=== PATIENT | female | born 1985 | race Caucasian/White ===

== ENCOUNTER 2018-08-04 15:00 | Emergency (ER) | payer MEDICAID, OTHER ==
[2018-08-04 15:58] LABS: BASOPHIL % 0.5 % (0.0-0.4); Basophil (Absolute #) 0.04 (0-0.4); Eosinophil (Absolute #) 0.08 (0-0.5); Granulocyte Absolute (ANC) 6.44 (1.4-6.9); Hematocrit 44.7 % (35-47); Hemoglobin 15.2 gm/dl (12.0-16.0); Lymphocyte (Absolute #) 0.72 (1.0-4.6); Mean Cell Volume 93.5 fl (78-100); Mean Corpuscular Hemoglobin 31.8 pg (26-32); Mean Platelet Volume 11.4 fl (6-9.5); Monocyte (Absolute #) 0.68 (0.0-1.3); Monocytes % 8.5 % (0.0-12.0); Platelet Count 263 K/mm3 (150-450); Red Blood Count 4.78 M/mm3 (4.1-5.4); Red Cell Distribution Width 12.5 % (11.5-14.0)
[2018-08-04 16:06] LABS: ALBUMIN 5.5 g/dL (3.5-5.0); ALKALINE PHOSPHATASE 77 U/L (38-126); ANION GAP 18.2 MEQ/L (5-15); BLOOD UREA NITROGEN 14 mg/dL (7-17); CHLORIDE 100 mmol/L (98-107); Calcium 10.3 mg/dL (8.4-10.2); Carbon Dioxide 28 mmol/L (22-30); Creatinine 1 0.53 mg/dL (0.52-1.04); Glucose 106 mg/dL (74-106); Potassium 4.2 mmol/L (3.5-5.1); SGOT/AST 25 U/L (14-36); SGPT/ALT 17 U/L (0-35); SODIUM 141 mmol/L (137-145); Total Protein 9.4 g/dL (6.3-8.2)
[2018-08-04] MEDS ORDERED: Sodium Chloride 0.9% 1000 ML 1,000 ML IV STA (16:15)
[2018-08-04] MEDS ORDERED: Sodium Chloride 0.9% 1000 ML 1,000 ML ONE (16:20)
--- NOTE | 2018-08-04 18:54 | XRAY ---
Indication: Lower abdominal pain and constipation. Comparison: None KUB nonacute and nonobstructed with mild fecal debris in the sigmoid colon and rectum. Remaining solid organs, osseous structures, and lung bases unremarkable.
[2018-08-04 19:16] VITALS: BP 146/92; PULSE 84; O2SAT 100
--- NOTE | 2018-08-04 19:41 | ERPHSYRPT ---
- History of Present Illness Historian: patient Exam Limitations: no limitations Patient Subjective Stated Complaint: constipated for four days. this am took three laxatives and still has not had a bm. also had some bleeding from rectum. Triage Nursing Assessment: ambulated to room per self holding lower abd. abd soft, hypoactive bowel sounds. Physician History: Pt is a 33 y/o female with a h/o constipation of 4 days. She took multiple constipation meds, and developed abdominal pain, and nausea. Pt denies F/C/S. No vomiting. She does have some blood with straining. No chest pain or palpitations. No SOB or cough. Timing/Duration: day(s) (4 days of constipation) Activities at Onset: none Quality: cramping Pain Radiation: no radiation Severity of Pain-Max: moderate Severity of Pain-Current: none Modifying Factors: Improves With: defecating Allergies/Adverse Reactions: codeine Allergy (Mild, Verified 08/04/18 15:19) oxytocin [From Pitocin] Allergy (Verified 08/04/18 15:19) Home Medications: Buspirone HCl [Buspar] 7.5 mg PO BID 08/04/18 [History] Escitalopram Oxalate [Lexapro] 20 mg PO DAILY 08/04/18 [History] Ibuprofen [Ibu] 800 mg PO QIDPRN PRN 08/04/18 [History] Hx Tetanus, Diphtheria Vaccination/Date Given: Yes Hx Influenza Vaccination/Date Given: No Hx Pneumococcal Vaccination/Date Given: No - Review of Systems Constitutional: No Fever, No Chills Eyes: No Symptoms Ears, Nose, & Throat: No Symptoms Respiratory: No Cough, No Dyspnea Cardiac: No Chest Pain, No Edema, No Syncope Abdominal/Gastrointestinal: Abdominal Pain, Nausea, Constipation Genitourinary Symptoms: No Dysuria Musculoskeletal: No Back Pain, No Neck Pain Skin: No Rash Neurological: No Dizziness, No Focal Weakness, No Sensory Changes Psychological: No Symptoms Endocrine: No Symptoms All Other Systems: Reviewed and Negative - Past Medical History Pertinent Past Medical History: Yes Respiratory History: Asthma Other Medical History: left fallopian tube removed - Past Surgical History Past Surgical History: Yes Female Surgical History: Section, Other Other Surgical History: left fallopian tube - Social History Smoking Status: Current every day smoker Exposure to second hand smoke: Yes Drug Use: none Patient Lives Alone: No - Female History Hx Last Menstrual Period: now Hx Now: No - Nursing Vital Signs Nursing Vital Signs: Initial Vital Signs Temperature 97.5 F 08/04/18 15:09 Pulse Rate 89 08/04/18 15:09 Respiratory Rate 16 08/04/18 15:09 Blood Pressure 161/116 08/04/18 15:09 O2 Sat by Pulse Oximetry 100 08/04/18 15:09 Pain Scale Pain Intensity 0 - Physical Exam General Appearance: no apparent distress, alert Eye Exam: PERRL/EOMI, eyes nml inspection Ears, Nose, Throat Exam: normal ENT inspection, pharynx normal, moist mucous membranes Neck Exam: normal inspection, non-tender, supple, full range of motion Respiratory Exam: normal breath sounds, lungs clear, No respiratory distress Cardiovascular Exam: regular rate/rhythm, normal heart sounds Gastrointestinal/Abdomen Exam: soft, tenderness Back Exam: normal inspection, normal range of motion, No CVA tenderness, No vertebral tenderness Extremity Exam: normal inspection, normal range of motion, pelvis stable Neurologic Exam: alert, oriented x 3, cooperative, normal mood/affect, nml cerebellar function, sensation nml, No motor deficits Skin Exam: normal color, warm, dry SpO2: 100 Oxygen Delivery: Room Air - Radiology Exams Abdomen X-ray Interpretation: Interpreted by me (no SBO. Constipation) Ordered Tests: Active Orders 24 hr Category Date Time Status KUB Stat Exams 08/04/18 15:32 Completed CBC W DIFF Stat Lab 08/04/18 15:31 Completed CMP Stat Lab 08/04/18 15:31 Completed HCG QUALITATIVE,SERUM Stat Lab 08/04/18 16:00 Completed TSH, 3RD Generation Stat Lab 08/04/18 16:00 Completed Medication Summary Discontinued Medications Generic Name Dose Route Start Last Admin Trade Name Freq PRN Reason Stop Dose Admin Sodium Chloride 1,000 mls @ 999 mls/hr 08/04/18 16:15 08/04/18 17:32 Sodium Chloride 0.9% 1000 Ml IV 08/04/18 17:15 Infused .Q1H1M STA Infusion Sodium Chloride Confirm 08/04/18 16:20 Sodium Chloride 0.9% 1000 Ml Administered 08/04/18 16:21 Dose 1,000 mls @ ud .ROUTE .STK-MED ONE Lab/Rad Data: Laboratory Result Diagrams 08/04/18 15:31 01/01/19 15:31 Laboratory Results 08/04/18 08/04/18 08/04/18 Range/Units 16:00 16:00 15:31 WBC (4.0-10.5) K/mm3 RBC (4.1-5.4) M/mm3 Hgb (12.0-16.0) gm/dl Hct (35-47) % MCV (78-100) fl MCH (26-32) pg MCHC (32-36) g/dl RDW (11.5-14.0) % Plt Count (150-450) K/mm3 MPV (6-9.5) fl Gran % (36.0-66.0) % Eos # (Auto) (0-0.5) Absolute Lymphs (auto) (1.0-4.6) Absolute Monos (auto) (0.0-1.3) Lymphocytes % (24.0-44.0) % Monocytes % (0.0-12.0) % Eosinophils % (0.00-5.0) % Basophils % (0.0-0.4) % Absolute Granulocytes (1.4-6.9) Basophils # (0-0.4) Sodium 141 (137-145) mmol/L Potassium 4.2 (3.5-5.1) mmol/L Chloride 100 (98-107) mmol/L Carbon Dioxide 28 (22-30) mmol/L Anion Gap 18.2 H (5-15) MEQ/L BUN 14 (7-17) mg/dL Creatinine 0.53 (0.52-1.04) mg/dL Estimated GFR > 60.0 ML/MIN Glucose 106 (74-106) mg/dL Calcium 10.3 H (8.4-10.2) mg/dL Total Bilirubin 0.90 (0.2-1.3) mg/dL AST 25 (14-36) U/L ALT 17 (0-35) U/L Alkaline Phosphatase 77 (38-126) U/L Serum Total Protein 9.4 H (6.3-8.2) g/dL Albumin 5.5 H (3.5-5.0) g/dL TSH 3rd Generation 1.570 (0.47-4.68) mIU/L Serum , Qual NEGATIVE (Negative) 08/04/18 Range/Units 15:31 WBC 8.0 (4.0-10.5) K/mm3 RBC 4.78 (4.1-5.4) M/mm3 Hgb 15.2 (12.0-16.0) gm/dl Hct 44.7 (35-47) % MCV 93.5 (78-100) fl MCH 31.8 (26-32) pg MCHC 34.0 (32-36) g/dl RDW 12.5 (11.5-14.0) % Plt Count 263 (150-450) K/mm3 MPV 11.4 H (6-9.5) fl Gran % 81.0 H (36.0-66.0) % Eos # (Auto) 0.08 (0-0.5) Absolute Lymphs (auto) 0.72 L (1.0-4.6) Absolute Monos (auto) 0.68 (0.0-1.3) Lymphocytes % 9.0 L (24.0-44.0) % Monocytes % 8.5 (0.0-12.0) % Eosinophils % 1.0 (0.00-5.0) % Basophils % 0.5 (0.0-0.4) % Absolute Granulocytes 6.44 (1.4-6.9) Basophils # 0.04 (0-0.4) Sodium (137-145) mmol/L Potassium (3.5-5.1) mmol/L Chloride (98-107) mmol/L Carbon Dioxide (22-30) mmol/L Anion Gap (5-15) MEQ/L BUN (7-17) mg/dL Creatinine (0.52-1.04) mg/dL Estimated GFR ML/MIN Glucose (74-106) mg/dL Calcium (8.4-10.2) mg/dL Total Bilirubin (0.2-1.3) mg/dL AST (14-36) U/L ALT (0-35) U/L Alkaline Phosphatase (38-126) U/L Serum Total Protein (6.3-8.2) g/dL Albumin (3.5-5.0) g/dL TSH 3rd Generation (0.47-4.68) mIU/L Serum , Qual (Negative) - Progress Progress: improved Progress Note: 08/04/18 19:39 Pt was scutcher tender, and CT abdomen was ordered. By the time the contrast was given to the pt, she had BM, and her abdominal pain resolved. Pt refused CT, and it was cancelled. Pt was advised to eat food that is rich in fibers, and if needed, to use stool softner, metamucil or Miralax. Will see patient in: office Counseled pt/family regarding: lab results - Departure Time of Disposition: 19:45 Departure Disposition: Home Clinical Impression: Constipation Condition: Good Critical Care Time: No Referrals: BEATRICE VELARDE [Primary Care Provider] - Additional Instructions: Follow up with PCP in a week.
== END 2018-08-04 19:44 | disposition home or self-care (01) ==
LOC: ED 15:00
DX: K59.00 Constipation, unspecified (principal); Z79.899 Other long term (current) drug therapy
CPT/HCPCS: 36000; 36415; 74018; 80053; 81025; 82310; 83970; 84443; 85025; 96360; 99284